=== PATIENT | female | born 1965 | race American Indian/Alaskan Native ===

== ENCOUNTER 2017-05-16 06:54 | Day surgery (SDC) | payer BC, OTHER ==
[~2017-05-16] VITALS: Ht 165.1 cm; Wt 87.7 kg
[~2017-05-16 06:54] MED LIST: AMIT75 PO; ARIP15 PO; CELE200 PO; CLON.1 PO; DIVA500EC PO; DOC250 PO; DOCU100 PO; ESCI20 PO; GABA600 PO; HYDACE5325 PO; Hydrocodone-Ap1 EA23 PO; Imitrex100 MG PO; LAMO100 PO; LORA.5 PO; METF500C PO; METH5 PO; Norco 5-325 Ta1 EACH PO; Percocet 5-3251 EACH PO; SIMV40 PO; TERB250 PO; TIZA4 PO; TOPI25 PO; Zofran8 MG PO
[2017-05-16] MEDS ORDERED: CYAN1000I IM (07:33)
== END 2017-05-16 11:50 | disposition home or self-care (01) ==
LOC: ORSCSDS 06:54
PROVIDERS: Podiatrist Foot & Ankle Surgery
PROC: 01BG0ZZ Excision of Tibial Nerve, Open Approach (ICD-10-PCS; principal; 2017-05-16 08:30)
DX: G57.62 Lesion of plantar nerve, left lower limb (principal); E78.5 Hyperlipidemia, unspecified; F32.9 Major depressive disorder, single episode, unspecified; E16.2 Hypoglycemia, unspecified; J45.909 Unspecified asthma, uncomplicated; Z79.84 Long term (current) use of oral hypoglycemic drugs; Z79.899 Other long term (current) drug therapy; Z87.891 Personal history of nicotine dependence
CPT/HCPCS: 36415; 80048; 82947; 85025; 88304; J0171; J0690; J2250; J2370

== ENCOUNTER → 2018-03-09 | Outpatient (CLI) | payer BC, OTHER ==
[~2018-03-09] MED LIST changes: +CYAN1000I IM
== END | disposition home or self-care (01) ==
LOC: EDSTATUS 13:59 → LAB 20:16 → LAB SHORT 20:16
DX: R30.0 Dysuria (principal)
CPT/HCPCS: 87086

== ENCOUNTER → 2018-03-24 | Outpatient (CLI) | payer BC, OTHER | END | disposition home or self-care (01) | LOC: PLD 10:02 → LAB SHORT 10:02 | DX: D22.5 Melanocytic nevi of trunk (principal) | CPT/HCPCS: 88305 ==

== ENCOUNTER → 2018-03-26 | Outpatient (CLI) | payer BC, OTHER ==
[2018-03-26 16:09] LABS: Hematocrit 40.6 % (33.0-51.0); Hemoglobin 12.9 g/dL (11.5-16.0); Mean Corpuscular HGB 31.2 pg (26.0-34.0); Mean Corpuscular HGB Conc 31.8 g/dL (31.5-36.5); Mean Corpuscular Volume 98 fL (80-100); Mean Platelet Volume 9.3 fL (9.1-12.4); Platelet Count 291 K/mm3 (150-400); RDW Coefficient Variation 12.9 % (11.7-14.2); RDW Standard Deviation 46.1 fL (35.1-46.3); Red Blood Cell Count 4.14 M/mm3 (3.80-5.20); White Blood Cell Count 6.17 K/mm3 (4.00-11.30)
[2018-03-26 16:25] LABS: Alanine Aminotransfer (ALT/SGP 34 U/L (12-78); Albumin, Blood 3.6 g/dL (3.4-5.0); Alk Phos 73 U/L (50-136); Anion Gap 7 mmol/L (6-16); Aspartate Aminotrans (AST/SGOT 19 U/L (12-37); Bilirubin, Total 0.2 mg/dL (0.1-1.0); Blood Urea Nitrogen 15 mg/dL (8-24); Bun/Creatinine Ratio 18.8 (12.0-20.0); CO2, Blood 28 mmol/L (21-32); Calcium, Blood 8.1 mg/dL (8.5-10.1); Chloride, Blood 99 mmol/L (98-108); Globulin, Blood 3.6 g/dL (2.2-4.0); Glomerular Filtration Rate >60 (60-); Glucose, Blood 77 mg/dL (70-99); Potassium, Blood 4.3 mmol/L (3.5-5.5); Sodium, Blood 134 mmol/L (136-145); Total Protein, Blood 7.2 g/dL (6.4-8.2)
[2018-03-26 16:37] LABS: BASOPHILS PERCENT MAN 0 % (0-2); EOSINOPHILS ABSOLUTE MAN 0.24 K/mm3 (0.00-0.68); EOSINOPHILS PERCENT MAN 4 % (0-6); LYMPHOCYTES % ATYPICAL MANUAL 1 % (0-0); LYMPHOCYTES ABSOLUTE MAN 2.46 K/mm3 (0.84-5.20); LYMPHOCYTES PERCENT MAN 39 % (21-46); MONOCYTES ABSOLUTE MAN 0.24 K/mm3 (0.16-1.47); MONOCYTES PERCENT MAN 4 % (4-13); SEG NEUTROPHILS PERCENT MAN 52 % (41-73); TOTAL CELLS COUNTED 100
== END ==
LOC: LAB 15:51 → LAB SHORT 15:51
PROVIDERS: Nurse Practitioner
DX: F41.1 Generalized anxiety disorder (principal); R53.83 Other fatigue
CPT/HCPCS: 80053; 84443; 85007; 85027

== ENCOUNTER 2018-04-27 12:48 | Emergency (ER) | payer BC, OTHER ==
[~2018-04-27] VITALS: Ht 165.1 cm; Wt 81.7 kg
[~2018-04-27 12:48] MED LIST changes: -CYAN1000I IM; -Imitrex100 MG PO; -LAMO100 PO; -TIZA4 PO
[2018-04-27 13:45] LABS: BASOPHILS ABSOLUTE AUTO 0.01 K/mm3 (0.00-0.23); BASOPHILS PERCENT AUTO 0 % (0-2); EOSINOPHILS ABSOLUTE AUTO 0.13 K/mm3 (0.00-0.68); EOSINOPHILS PERCENT AUTO 2 % (0-6); Hematocrit 41.2 % (33.0-51.0); Hemoglobin 12.9 g/dL (11.5-16.0); IMMATURE GRAN ABSOLUTE AUTO 0.03 K/mm3 (0.00-0.10); IMMATURE GRAN PERCENT AUTO 1 % (0-1); LYMPHOCYTES ABSOLUTE AUTO 1.92 K/mm3 (0.84-5.20); LYMPHOCYTES PERCENT AUTO 29 % (21-46); MONOCYTES ABSOLUTE AUTO 0.61 K/mm3 (0.16-1.47); MONOCYTES PERCENT AUTO 9 % (4-13); Mean Corpuscular HGB 30.2 pg (26.0-34.0); Mean Corpuscular HGB Conc 31.3 g/dL (31.5-36.5); Mean Corpuscular Volume 97 fL (80-100); Mean Platelet Volume 9.5 fL (9.1-12.4); NEUTROPHILS ABSOLUTE AUTO 3.96 K/mm3 (1.96-9.15); NEUTROPHILS PERCENT AUTO 59 % (41-73); Platelet Count 279 K/mm3 (150-400); RDW Coefficient Variation 12.3 % (11.7-14.2); RDW Standard Deviation 43.7 fL (35.1-46.3); Red Blood Cell Count 4.27 M/mm3 (3.80-5.20); White Blood Cell Count 6.66 K/mm3 (4.00-11.30)
[2018-04-27 14:09] LABS: Alanine Aminotransfer (ALT/SGP 47 U/L (12-78); Albumin, Blood 3.4 g/dL (3.4-5.0); Alk Phos 108 U/L (50-136); Anion Gap 9 mmol/L (6-16); Aspartate Aminotrans (AST/SGOT 36 U/L (12-37); Bilirubin, Total 0.4 mg/dL (0.1-1.0); Blood Urea Nitrogen 14 mg/dL (8-24); Bun/Creatinine Ratio 14.8 (12.0-20.0); CO2, Blood 27 mmol/L (21-32); Calcium, Blood 8.4 mg/dL (8.5-10.1); Chloride, Blood 101 mmol/L (98-108); Creatinine, Blood 0.95 mg/dL (0.40-1.00); Globulin, Blood 3.4 g/dL (2.2-4.0); Glomerular Filtration Rate >60 (60-); Glucose, Blood 89 mg/dL (70-99); Potassium, Blood 3.9 mmol/L (3.5-5.5); Sodium, Blood 137 mmol/L (136-145); Total Protein, Blood 6.8 g/dL (6.4-8.2)
[2018-04-27 14:22] LABS: Source, Urine Clean Catch
[2018-04-27 14:27] LABS: Bilirubin, Urine Neg (Neg); Blood, Urine Neg (Neg); Glucose Qualitative, Urine Neg (Neg); Ketones, Urine 1+ (Neg); Leukocyte Esterase, Urine Neg (Neg); Nitrite, Urine Pos (Neg); Protein, Urine Neg (Neg); Urobilinogen, Urine 1+ (Normal)
[2018-04-27 14:40] LABS: Appearance, Urine Clear (Clear); Color, Urine Yellow (P-Yellow)
[2018-04-27 14:41] LABS: Red Blood Cells, Urine 0-2 /hpf (0-2); Transitional Epithelial Cells Few /hpf (0-Rare); White Blood Cells, Urine 0-2 /hpf (0-5)
[2018-04-27 14:42] LABS: Bacteria Few /hpf; Squamous Epithelial Cells Few /hpf (Few)
[2018-04-27] MEDS ORDERED: CITRATE OF MAG296 ML PO (17:07)
[2018-04-27] MEDS ORDERED: Colace250 MG PO (17:07)
[2018-04-28] MEDS ORDERED: ARIP20 PO ×2 (20:41)
[2018-04-28] MEDS ORDERED: Zanaflex2 M1 PO ×2 (21:22)
[2018-04-28] MEDS ORDERED: Metformin HCl500 MG PO ×2 (21:23)
[2018-04-28] MEDS ORDERED: LOSA25 PO ×2 (21:25)
[2018-04-28] MEDS ORDERED: HYDMOR4 PO ×2 (21:27)
[2018-04-28] MEDS ORDERED: AMIT25 PO ×2 (21:27)
[2018-04-28] MEDS ORDERED: Imitrex100 MG PO ×2 (21:29)
[2018-04-28] MEDS ORDERED: CYAN1000I IM ×2 (21:29)
[2018-04-28] MEDS ORDERED: LATUDA120 MG PO ×2 (21:31)
[2018-04-28] MEDS ORDERED: DIVA250ER PO ×2 (21:31)
[2018-04-28] MEDS ORDERED: LAMO100 PO ×2 (21:32)
[2018-04-28] MEDS ORDERED: Colace100 MG PO ×2 (21:34)
[2018-04-28] MEDS ORDERED: Ferosul325 MG PO ×2 (21:35)
[2018-04-28] MEDS ORDERED: LIBRAX PO ×2 (21:38)
== END 2018-04-27 17:24 | disposition home or self-care (01) ==
LOC: ER 12:48
PROVIDERS: Emergency Medicine
DX: K59.00 Constipation, unspecified (principal); I25.2 Old myocardial infarction; F31.9 Bipolar disorder, unspecified; E11.9 Type 2 diabetes mellitus without complications; Z87.891 Personal history of nicotine dependence; Z88.8 Allergy status to other drugs, medicaments and biological substances; Z88.5 Allergy status to narcotic agent; Z79.899 Other long term (current) drug therapy; Z91.048 Other nonmedicinal substance allergy status; Z79.84 Long term (current) use of oral hypoglycemic drugs
CPT/HCPCS: 36415; 74176; 80053; 81001; 83690; 85025; 87077; 87086; 87186; 96374; 96375; 99284-25; J2270; J2405

== ENCOUNTER 2018-04-28 16:26 | Inpatient (IN) | payer BC, OTHER ==
[~2018-04-28] VITALS: Ht 165.1 cm; Wt 81.7 kg
[~2018-04-28 16:26] MED LIST changes: +CITRATE OF MAG296 ML PO; +Colace250 MG PO
[2018-04-28 16:54] LABS: BASOPHILS ABSOLUTE AUTO 0.03 K/mm3 (0.00-0.23); BASOPHILS PERCENT AUTO 0 % (0-2); EOSINOPHILS ABSOLUTE AUTO 0.09 K/mm3 (0.00-0.68); EOSINOPHILS PERCENT AUTO 1 % (0-6); Hematocrit 42.5 % (33.0-51.0); Hemoglobin 13.3 g/dL (11.5-16.0); IMMATURE GRAN ABSOLUTE AUTO 0.06 K/mm3 (0.00-0.10); IMMATURE GRAN PERCENT AUTO 1 % (0-1); LYMPHOCYTES ABSOLUTE AUTO 1.12 K/mm3 (0.84-5.20); LYMPHOCYTES PERCENT AUTO 9 % (21-46); MONOCYTES ABSOLUTE AUTO 0.74 K/mm3 (0.16-1.47); MONOCYTES PERCENT AUTO 6 % (4-13); Mean Corpuscular HGB 30.9 pg (26.0-34.0); Mean Corpuscular HGB Conc 31.3 g/dL (31.5-36.5); Mean Corpuscular Volume 99 fL (80-100); Mean Platelet Volume 9.6 fL (9.1-12.4); NEUTROPHILS PERCENT AUTO 84 % (41-73); Platelet Count 307 K/mm3 (150-400); RDW Coefficient Variation 12.1 % (11.7-14.2); RDW Standard Deviation 44.6 fL (35.1-46.3); Red Blood Cell Count 4.31 M/mm3 (3.80-5.20); White Blood Cell Count 12.34 K/mm3 (4.00-11.30)
[2018-04-28 17:10] LABS: Alanine Aminotransfer (ALT/SGP 49 U/L (12-78); Albumin, Blood 3.4 g/dL (3.4-5.0); Alk Phos 112 U/L (50-136); Anion Gap 9 mmol/L (6-16); Aspartate Aminotrans (AST/SGOT 50 U/L (12-37); Bilirubin, Total 0.3 mg/dL (0.1-1.0); Blood Urea Nitrogen 19 mg/dL (8-24); Bun/Creatinine Ratio 19.7 (12.0-20.0); CO2, Blood 27 mmol/L (21-32); Calcium, Blood 8.7 mg/dL (8.5-10.1); Chloride, Blood 97 mmol/L (98-108); Creatinine, Blood 0.96 mg/dL (0.40-1.00); Globulin, Blood 3.4 g/dL (2.2-4.0); Glomerular Filtration Rate >60 (60-); Glucose, Blood 118 mg/dL (70-99); Potassium, Blood 4.7 mmol/L (3.5-5.5); Sodium, Blood 133 mmol/L (136-145); Total Protein, Blood 6.8 g/dL (6.4-8.2)
[2018-04-28 18:59] LABS: Source, Urine Clean Catch
[2018-04-28 19:07] LABS: Appearance, Urine Clear (Clear); Blood, Urine Neg (Neg); Color, Urine Amber (P-Yellow); Glucose Qualitative, Urine Neg (Neg); Ketones, Urine 2+ (Neg); Leukocyte Esterase, Urine 2+ (Neg); Nitrite, Urine Pos (Neg); Protein, Urine 1+ (Neg); Urobilinogen, Urine 2+ (Normal); pH, Urine 6.5 (5.0-8.0)
[2018-04-28 19:16] LABS: Bilirubin, Urine 2+ (Neg)
[2018-04-28 19:17] LABS: Bacteria Mod /hpf; Hyaline Casts 0-2 /lpf (0-2); Red Blood Cells, Urine 0-2 /hpf (0-2); Squamous Epithelial Cells Mod /hpf (Few)
[2018-04-28] MEDS ORDERED: ARIP20 PO ×2 (20:41)
[2018-04-28] MEDS ORDERED: Zanaflex2 M1 PO ×2 (21:22)
[2018-04-28] MEDS ORDERED: Metformin HCl500 MG PO ×2 (21:23)
[2018-04-28] MEDS ORDERED: LOSA25 PO ×2 (21:25)
[2018-04-28] MEDS ORDERED: HYDMOR4 PO ×2 (21:27)
[2018-04-28] MEDS ORDERED: AMIT25 PO ×2 (21:27)
[2018-04-28] MEDS ORDERED: CYAN1000I IM ×2 (21:29)
[2018-04-28] MEDS ORDERED: Imitrex100 MG PO ×2 (21:29)
[2018-04-28] MEDS ORDERED: DIVA250ER PO ×2 (21:31)
[2018-04-28] MEDS ORDERED: LATUDA120 MG PO ×2 (21:31)
[2018-04-28] MEDS ORDERED: LAMO100 PO ×2 (21:32)
[2018-04-28] MEDS ORDERED: Colace100 MG PO ×2 (21:34)
[2018-04-28] MEDS ORDERED: Ferosul325 MG PO ×2 (21:35)
[2018-04-28] MEDS ORDERED: LIBRAX PO ×2 (21:38)
[2018-04-29 05:55] LABS: BASOPHILS ABSOLUTE AUTO 0.01 K/mm3 (0.00-0.23); BASOPHILS PERCENT AUTO 0 % (0-2); EOSINOPHILS ABSOLUTE AUTO 0.16 K/mm3 (0.00-0.68); EOSINOPHILS PERCENT AUTO 3 % (0-6); Hematocrit 35.1 % (33.0-51.0); IMMATURE GRAN ABSOLUTE AUTO 0.02 K/mm3 (0.00-0.10); IMMATURE GRAN PERCENT AUTO 0 % (0-1); LYMPHOCYTES ABSOLUTE AUTO 1.39 K/mm3 (0.84-5.20); LYMPHOCYTES PERCENT AUTO 26 % (21-46); MONOCYTES ABSOLUTE AUTO 0.51 K/mm3 (0.16-1.47); MONOCYTES PERCENT AUTO 9 % (4-13); Mean Corpuscular HGB 30.4 pg (26.0-34.0); Mean Corpuscular HGB Conc 31.3 g/dL (31.5-36.5); Mean Corpuscular Volume 97 fL (80-100); Mean Platelet Volume 9.4 fL (9.1-12.4); NEUTROPHILS ABSOLUTE AUTO 3.36 K/mm3 (1.96-9.15); NEUTROPHILS PERCENT AUTO 62 % (41-73); Platelet Count 249 K/mm3 (150-400); RDW Coefficient Variation 12.3 % (11.7-14.2); RDW Standard Deviation 43.8 fL (35.1-46.3); Red Blood Cell Count 3.62 M/mm3 (3.80-5.20); White Blood Cell Count 5.45 K/mm3 (4.00-11.30)
[2018-04-29 06:24] LABS: Alanine Aminotransfer (ALT/SGP 52 U/L (12-78); Albumin, Blood 2.7 g/dL (3.4-5.0); Alk Phos 98 U/L (50-136); Anion Gap 9 mmol/L (6-16); Aspartate Aminotrans (AST/SGOT 40 U/L (12-37); Bilirubin, Total 0.3 mg/dL (0.1-1.0); Blood Urea Nitrogen 11 mg/dL (8-24); Bun/Creatinine Ratio 18.9 (12.0-20.0); CO2, Blood 26 mmol/L (21-32); Calcium, Blood 7.2 mg/dL (8.5-10.1); Chloride, Blood 106 mmol/L (98-108); Creatinine, Blood 0.58 mg/dL (0.40-1.00); Globulin, Blood 2.7 g/dL (2.2-4.0); Glomerular Filtration Rate >60 (60-); Glucose, Blood 94 mg/dL (70-99); Potassium, Blood 4.2 mmol/L (3.5-5.5); Sodium, Blood 141 mmol/L (136-145); Total Protein, Blood 5.4 g/dL (6.4-8.2)
--- NOTE | 2018-04-29 14:08 | NUR ---
Initial Visit: Palliative Care Consult for Advanced Care Planning. Pt is A&Ox4 and reports 8/10 pain in her abdomen. She reports current regimen is managing her pain. She reports 5/7 anxiety mainly due to the possibility of having an NG-Tube placed. She reports her PCP is currently in the process of deciding how to approach her anxiety and also adjusting her bipolar medications. Educated Pt on distraction techniques to help manage her anxiety. Engaged in therapeutic conversation about goals of care. Pt is of [employer] madelin and lives at home with her . She reports plans to celebrate 30 years of marriage by going to [facility] in 2 weeks. Discussion was made about AD/POLST and Pt expresses interest. Educated Pt on AD/POLST and she reports that she will complete a form after discussion with family. Pt reports no other concerns at this time. Spoke with Pt's nurse Nia and she reports no concerns at this time. Plan: Will place spiritual care consult. Will remain available
--- NOTE | 2018-04-29 14:50 | NUR ---
patient brought to room by radiology to drop off her belongings then taken back to radiology to complete study
--- NOTE | 2018-04-29 17:30 | NUR ---
1700 diarrhea explosive brown liquid diarrhea with some marble sized hard pellets. patient showered self, returned to bed and immediate reoccurence of explosive diarrhea
--- NOTE | 2018-04-29 18:36 | NUR ---
summarpatient taking ice chips and denies nausea. commode at bedside as patient still feels like she may have sudden diarrhea/ patient denies abd pain at this time
[2018-04-30 05:50] LABS: BASOPHILS ABSOLUTE AUTO 0.01 K/mm3 (0.00-0.23); BASOPHILS PERCENT AUTO 0 % (0-2); EOSINOPHILS ABSOLUTE AUTO 0.15 K/mm3 (0.00-0.68); EOSINOPHILS PERCENT AUTO 4 % (0-6); Hematocrit 36.3 % (33.0-51.0); Hemoglobin 10.9 g/dL (11.5-16.0); IMMATURE GRAN ABSOLUTE AUTO 0.01 K/mm3 (0.00-0.10); IMMATURE GRAN PERCENT AUTO 0 % (0-1); LYMPHOCYTES ABSOLUTE AUTO 2.07 K/mm3 (0.84-5.20); LYMPHOCYTES PERCENT AUTO 50 % (21-46); MONOCYTES PERCENT AUTO 10 % (4-13); Mean Corpuscular HGB 29.8 pg (26.0-34.0); Mean Corpuscular Volume 99 fL (80-100); Mean Platelet Volume 9.4 fL (9.1-12.4); NEUTROPHILS ABSOLUTE AUTO 1.51 K/mm3 (1.96-9.15); NEUTROPHILS PERCENT AUTO 37 % (41-73); Platelet Count 237 K/mm3 (150-400); RDW Coefficient Variation 12.2 % (11.7-14.2); RDW Standard Deviation 44.7 fL (35.1-46.3); Red Blood Cell Count 3.66 M/mm3 (3.80-5.20); White Blood Cell Count 4.15 K/mm3 (4.00-11.30)
[2018-04-30 06:23] LABS: Alanine Aminotransfer (ALT/SGP 38 U/L (12-78); Albumin, Blood 2.4 g/dL (3.4-5.0); Alk Phos 91 U/L (50-136); Anion Gap 7 mmol/L (6-16); Aspartate Aminotrans (AST/SGOT 25 U/L (12-37); Bilirubin, Total 0.4 mg/dL (0.1-1.0); Blood Urea Nitrogen 4 mg/dL (8-24); Bun/Creatinine Ratio 6.3 (12.0-20.0); CO2, Blood 28 mmol/L (21-32); Calcium, Blood 7.2 mg/dL (8.5-10.1); Chloride, Blood 108 mmol/L (98-108); Creatinine, Blood 0.63 mg/dL (0.40-1.00); Globulin, Blood 2.5 g/dL (2.2-4.0); Glomerular Filtration Rate >60 (60-); Glucose, Blood 82 mg/dL (70-99); Potassium, Blood 3.8 mmol/L (3.5-5.5); Sodium, Blood 143 mmol/L (136-145); Total Protein, Blood 4.9 g/dL (6.4-8.2)
--- NOTE | 2018-04-30 07:39 | NUR ---
SUMMARY: NO CHANGE OVERNIGHT. PT A/O, INDEPENDENT IN ROOM. VSS. PT ABLE TO SLEEP DENIED NAUSEA, HAD BM, TOLERATING ICE CHIPS. CBG'S STABLE THROUGHOUT NIGHT D5 AT 75ML/HR INFUSING. WILL CTM AND REPORT TO DAY RN.
[2018-04-30 15:20] LABS: Adenovirus F 40/41 Not Detected (NOT DETECT); Astrovirus Not Detected (NOT DETECT); Campylobacter Sp Not Detected (NOT DETECT); Cryptosporidium Not Detected (NOT DETECT); Cyclospora Cayetanensis Not Detected (NOT DETECT); E. Coli O157 Not Detected (NOT DETECT); Entamoeba Histolytica Not Detected (NOT DETECT); Enteroaggregative E. coli-EAEC Not Detected (NOT DETECT); Enteropathogenic E. coli-EPEC Not Detected (NOT DETECT); Enterotoxigenic E. coli-ETEC Not Detected (NOT DETECT); Giardia Lamblia Not Detected (NOT DETECT); Norovirus GI/GII Not Detected (NOT DETECT); Plesiomonas Shigelloides Not Detected (NOT DETECT); Rotavirus A Not Detected (NOT DETECT); Salmonella Sp Not Detected (NOT DETECT); Sapovirus Not Detected (NOT DETECT); Shiga Toxin-prod E. coli-STEC Not Detected (NOT DETECT); Shigella/Enteroin E. coli-EIEC Not Detected (NOT DETECT); Vibrio Cholerae Not Detected (NOT DETECT); Vibrio Sp Not Detected (NOT DETECT); Yersinia Enterocolitica Not Detected (NOT DETECT)
[2018-04-30] MEDS ORDERED: ACET325 PO ×2 (15:50)
[2018-04-30] MEDS ORDERED: CEFP200 PO ×2 (15:50)
[2018-04-30] MEDS ORDERED: METO5A PO ×2 (15:51)
[2018-04-30] MEDS ORDERED: SENN187 PO ×2 (15:52)
[2018-04-30] MEDS ORDERED: MIRALAX17 GM PO ×2 (15:52)
[2018-04-30] MEDS ORDERED: DOC250 PO ×2 (15:52)
--- NOTE | 2018-04-30 16:28 | NUR ---
Noreen was in the process of being discharged. She is active in her madelin community and tells me that her city mail carrier has been providing prayer. She allowed me to pray for continued health.
--- NOTE | 2018-04-30 17:19 | NUR ---
DISCHARGE NOTE PT DISCHARGED HOME. DISCHARGE PAPERWORK COMPLETED BY SHEILA ALVARADO AND DISCHARGE INSTRUCTIONS/TEACHING COMPLETED BY RUSS GILES RN. PT LEFT ROOM WITH STEADY GAIT AT 1700 WITH RN ESCORT. IV REMOVED AND BELONGINGS RETURNED THOUGH PT STATES THAT HER CLOTHES THAT SHE WAS WEARING WHEN SHE CAME IN, DID NOT COME TO HER ROOM WITH HER. SHE STATES THAT SHE WILL CALL [facility] TOMORROW.
== END 2018-04-30 18:33 | disposition home or self-care (01) | DRG 389 ==
LOC: ER 16:26 → SURS 20:13 → ERHOLD 20:13 → SURS 20:13
PROVIDERS: Emergency Medicine; Family Medicine; Student in an Organized Health Care Education/Training Program; ADMIT Hospitalist
DX: K56.609 Unspecified intestinal obstruction, unspecified as to partial versus complete obstruction (principal); E87.1 Hypo-osmolality and hyponatremia; N39.0 Urinary tract infection, site not specified; F31.9 Bipolar disorder, unspecified; E11.9 Type 2 diabetes mellitus without complications; G43.909 Migraine, unspecified, not intractable, without status migrainosus; Z98.84 Bariatric surgery status; G89.4 Chronic pain syndrome; I10 Essential (primary) hypertension; F41.9 Anxiety disorder, unspecified; K59.00 Constipation, unspecified; Z88.6 Allergy status to analgesic agent; Z88.5 Allergy status to narcotic agent; Z88.8 Allergy status to other drugs, medicaments and biological substances; Z79.84 Long term (current) use of oral hypoglycemic drugs; Z79.899 Other long term (current) drug therapy; Z87.891 Personal history of nicotine dependence; I25.2 Old myocardial infarction
CPT/HCPCS: 36415; 74177; 74250; 80053; 81001; 82947; 83690; 85025; 87077; 87086; 87186; 87507; 96361; 96365-59; 96372-59; 96375; 96376; 99285-25; J0696; J1170; J1650; J2405; J2765; J7030; J7070; Q9963; Q9967

== ENCOUNTER 2020-05-29 00:26 | Day surgery (SDC) | payer BC, OTHER ==
[~2020-05-29 00:26] MED LIST changes: +ACET325 PO; +AMIT25 PO; +ARIP20 PO; +CEFP200 PO; +CYAN1000I IM; +Colace100 MG PO; +DIVA250ER PO; +Ferosul325 MG PO; +HYDMOR4 PO; +Imitrex100 MG PO; +LAMO100 PO; +LATUDA120 MG PO; +LIBRAX PO; +LOSA25 PO; +METO5A PO; +MIRALAX17 GM PO; +Metformin HCl500 MG PO; +SENN187 PO; +Zanaflex2 M1 PO
== END 2020-05-29 22:48 | disposition home or self-care (01) ==
LOC: WOUND 00:26
DX: T81.31XA Disruption of external operation (surgical) wound, not elsewhere classified, initial encounter (principal); E11.621 Type 2 diabetes mellitus with foot ulcer; L97.529 Non-pressure chronic ulcer of other part of left foot with unspecified severity; I50.9 Heart failure, unspecified; I25.2 Old myocardial infarction; Z87.891 Personal history of nicotine dependence; Z98.84 Bariatric surgery status; Y83.8 Other surgical procedures as the cause of abnormal reaction of the patient, or of later complication, without mention of misadventure at the time of the procedure
CPT/HCPCS: A9270; G0463

== ENCOUNTER 2020-06-06 01:04 | Day surgery (SDC) | payer BC, OTHER | END 2020-06-06 22:41 | disposition home or self-care (01) | LOC: WOUND 01:04 | DX: S91.302D Unspecified open wound, left foot, subsequent encounter (principal); X58.XXXD Exposure to other specified factors, subsequent encounter; E11.621 Type 2 diabetes mellitus with foot ulcer | CPT/HCPCS: A9270; G0463 ==

== ENCOUNTER 2020-06-13 00:23 | Day surgery (SDC) | payer BC, OTHER | END 2020-06-13 22:37 | disposition home or self-care (01) | LOC: WOUND 00:23 | DX: T81.30XA Disruption of wound, unspecified, initial encounter (principal); E11.9 Type 2 diabetes mellitus without complications; I50.9 Heart failure, unspecified; D64.9 Anemia, unspecified; I95.9 Hypotension, unspecified; I25.2 Old myocardial infarction | CPT/HCPCS: A9270; G0463 ==

== ENCOUNTER 2020-06-29 01:58 | Day surgery (SDC) | payer BC, OTHER | END 2020-06-29 22:57 | disposition home or self-care (01) | LOC: WOUND 01:58 | DX: T81.31XA Disruption of external operation (surgical) wound, not elsewhere classified, initial encounter (principal); S91.302D Unspecified open wound, left foot, subsequent encounter; X58.XXXD Exposure to other specified factors, subsequent encounter; E11.621 Type 2 diabetes mellitus with foot ulcer | CPT/HCPCS: G0463 ==

== ENCOUNTER → 2021-06-05 | Outpatient (CLI) | payer BC, OTHER ==
[~2021-06-05] MED LIST changes: +ABILIFY MYCITE10 M2 PO; +AIMOVIG AU140 MG/1 M SC; +Amitriptyline H10 MG PO; +DIVA250EC PO; +ESTR2 PO; +GABA100 PO; +LACT10SY PO; +LATUDA20 M1; +METF500 PO; +SUBVENITE PO; +SUMA6I SC; +ZEBUTAL 50-3251 EAC1 PO
[2021-06-05 10:12] LABS: Source, Urine Clean Catch
[2021-06-05 11:50] LABS: Bilirubin, Urine Neg (Neg); Blood, Urine 3+ (Neg); Glucose Qualitative, Urine Neg (Neg); Ketones, Urine 1+ (Neg); Leukocyte Esterase, Urine 3+ (Neg); Nitrite, Urine Pos (Neg); Protein, Urine 2+ (Neg); Specific Gravity, Urine 1.015 (1.003-1.022); Urobilinogen, Urine 1+ (Normal)
[2021-06-05 12:03] LABS: Appearance, Urine Hazy (Clear); Bacteria Mod /hpf; Color, Urine Yellow (P-Yellow); Squamous Epithelial Cells Few /hpf (Few); White Blood Cells, Urine TNTC /hpf (0-5)
== END ==
LOC: LAB SHORT 10:07
PROVIDERS: Family Medicine
DX: R30.0 Dysuria (principal)
CPT/HCPCS: 81001

== ENCOUNTER 2021-06-12 11:52 | Day surgery (SDC) | payer BC, OTHER ==
[~2021-06-12] VITALS: Ht 165.1 cm; Wt 87.6 kg
[2021-06-12] MEDS ORDERED: UBRELVY50 MG (12:24)
[2021-06-12] MEDS ORDERED: FERSU300 (12:27)
[2021-06-12] MEDS ORDERED: HYDMOR4 (12:27)
[2021-06-12] MEDS ORDERED: VRAYLAR6 MG (12:27)
[2021-06-12] MEDS ORDERED: LIBRAX CAPSULE1 EACH (12:27)
== END 2021-06-12 14:25 | disposition home or self-care (01) ==
LOC: ORSCSDS 11:52
PROVIDERS: Surgery
PROC: 0DJD8ZZ Inspection of Lower Intestinal Tract, Via Natural or Artificial Opening Endoscopic (ICD-10-PCS; principal; 2021-06-12 13:30)
DX: Z12.11 Encounter for screening for malignant neoplasm of colon (principal); Z80.0 Family history of malignant neoplasm of digestive organs; K59.09 Other constipation; K21.9 Gastro-esophageal reflux disease without esophagitis; E11.9 Type 2 diabetes mellitus without complications; F32.A Depression, unspecified; I10 Essential (primary) hypertension; I25.2 Old myocardial infarction; Z98.84 Bariatric surgery status; Z87.891 Personal history of nicotine dependence; Z79.84 Long term (current) use of oral hypoglycemic drugs; Z79.899 Other long term (current) drug therapy
CPT/HCPCS: 82947; J2704; J7120

== ENCOUNTER → 2021-07-27 | Outpatient (CLI) | payer BC, OTHER ==
[~2021-07-27] MED LIST changes: +FERSU300; +HYDMOR4; +LIBRAX CAPSULE1 EACH; +UBRELVY50 MG; +VRAYLAR6 MG
== END | disposition home or self-care (01) ==
LOC: LAB SHORT 12:02 → LAB 12:02
DX: R30.9 Painful micturition, unspecified (principal)
CPT/HCPCS: 87086

== ENCOUNTER → 2021-12-06 | Outpatient (CLI) | payer BC, OTHER ==
[2021-12-06 14:50] LABS: Source, Urine Clean Catch
[2021-12-06 15:48] LABS: Appearance, Urine Hazy (Clear); Bilirubin, Urine Neg (Neg); Blood, Urine 1+ (Neg); Color, Urine Yellow (P-Yellow); Glucose Qualitative, Urine 3+ (Neg); Ketones, Urine Neg (Neg); Leukocyte Esterase, Urine 3+ (Neg); Nitrite, Urine Neg (Neg); Protein, Urine 1+ (Neg); Urobilinogen, Urine NORM (Normal)
[2021-12-06 16:41] LABS: Bacteria Many /hpf; Red Blood Cells, Urine 0-2 /hpf (0-2); Squamous Epithelial Cells Rare /hpf (Few); White Blood Cells, Urine 50-100 /hpf (0-5)
[2021-12-06 16:42] LABS: Mucus Light (0-Heavy)
== END | disposition home or self-care (01) ==
LOC: LAB SHORT 14:10 → LAB 14:10
PROVIDERS: Family Medicine
DX: R35.0 Frequency of micturition (principal)
CPT/HCPCS: 81001; 87077; 87086; 87186

== ENCOUNTER → 2022-01-31 | Outpatient (CLI) | payer BC, OTHER ==
[2022-01-31 15:26] LABS: Source, Urine Clean Catch
[2022-01-31 18:22] LABS: Appearance, Urine Hazy (Clear); Bilirubin, Urine Neg (Neg); Blood, Urine 3+ (Neg); Color, Urine Yellow (P-Yellow); Glucose Qualitative, Urine 1+ (Neg); Ketones, Urine 1+ (Neg); Leukocyte Esterase, Urine 2+ (Neg); Nitrite, Urine Neg (Neg); Protein, Urine 2+ (Neg); Specific Gravity, Urine 1.025 (1.003-1.022); Urobilinogen, Urine NORM (Normal)
[2022-01-31 18:39] LABS: Bacteria Few /hpf; Hyaline Casts 0-2 /lpf (0-2); Squamous Epithelial Cells Few /hpf (Few); Transitional Epithelial Cells Rare /hpf (0-Rare); White Blood Cells, Urine 25-50 /hpf (0-5); Yeast/Fungi Urine Rare /hpf
== END | disposition home or self-care (01) ==
LOC: LAB 15:10 → LAB SHORT 15:10
PROVIDERS: Family Medicine
DX: R30.0 Dysuria (principal)
CPT/HCPCS: 81001; 87086

== ENCOUNTER 2022-04-18 13:24 | Day surgery (SDC) | payer BC, OTHER ==
[~2022-04-18] VITALS: Ht 165.1 cm; Wt 95.3 kg
[2022-04-18] MEDS ORDERED: VITAMIN B125000 MC1 (13:49)
--- NOTE | 2022-04-18 14:40 | NUR ---
04/18/22 1440 FRANCINE BONE NEBULIZED LIDOCAIN 4% 5ML INHALED PER DR GRAHAM ANESTHESIA PRE EGD
== END 2022-04-18 15:50 | disposition home or self-care (01) ==
LOC: ORSCSDS 13:24
PROVIDERS: Student in an Organized Health Care Education/Training Program
PROC: 0DB58ZX Excision of Esophagus, Via Natural or Artificial Opening Endoscopic, Diagnostic (ICD-10-PCS; principal; 2022-04-18 15:00)
PROC: 0DB68ZX Excision of Stomach, Via Natural or Artificial Opening Endoscopic, Diagnostic (ICD-10-PCS; principal; 2022-04-18 15:00)
DX: R10.12 Left upper quadrant pain (principal); K22.10 Ulcer of esophagus without bleeding; K21.00 Gastro-esophageal reflux disease with esophagitis, without bleeding; R13.10 Dysphagia, unspecified; R23.4 Changes in skin texture; E11.9 Type 2 diabetes mellitus without complications; I25.2 Old myocardial infarction; F31.9 Bipolar disorder, unspecified; I10 Essential (primary) hypertension; F41.9 Anxiety disorder, unspecified; F32.A Depression, unspecified; K58.1 Irritable bowel syndrome with constipation; Z98.84 Bariatric surgery status; E66.9 Obesity, unspecified; Z68.33 Body mass index [BMI] 33.0-33.9, adult; Z87.891 Personal history of nicotine dependence; Z79.84 Long term (current) use of oral hypoglycemic drugs; Z79.899 Other long term (current) drug therapy
CPT/HCPCS: 82947; J0330; J0461; J2001; J2250; J2405; J2704; J3010; J3301; J7120; Q9968

== ENCOUNTER 2022-07-14 14:12 | Emergency (ER) | payer BC, OTHER ==
[~2022-07-14] VITALS: Ht 165.1 cm; Wt 95.2 kg
[~2022-07-14 14:12] MED LIST changes: +VITAMIN B125000 MC1
[2022-07-14 14:49] VITALS: BP 142/92
== END 2022-07-14 16:49 | disposition home or self-care (01) ==
LOC: ER 14:12
DX: S00.551A Superficial foreign body of lip, initial encounter (principal); W45.8XXA Other foreign body or object entering through skin, initial encounter; Z88.8 Allergy status to other drugs, medicaments and biological substances; Z88.6 Allergy status to analgesic agent; Z88.5 Allergy status to narcotic agent; Z79.899 Other long term (current) drug therapy; Z91.048 Other nonmedicinal substance allergy status; Z79.84 Long term (current) use of oral hypoglycemic drugs; I25.10 Atherosclerotic heart disease of native coronary artery without angina pectoris; I25.2 Old myocardial infarction; E11.9 Type 2 diabetes mellitus without complications; I10 Essential (primary) hypertension; Z87.891 Personal history of nicotine dependence
CPT/HCPCS: 99283; A9270

== ENCOUNTER → 2023-01-15 | Outpatient (CLI) | payer BC, OTHER | END | disposition home or self-care (01) | LOC: LAB SHORT 11:30 → LAB 11:30 | DX: R30.0 Dysuria (principal) | CPT/HCPCS: 87077; 87086; 87186 ==

== ENCOUNTER → 2023-06-26 | Outpatient (CLI) | payer BC, OTHER ==
[2023-06-26 20:07] LABS: Bacterial Vaginosis PCR Negative (NEGATIVE); Candida Group, PCR NOT DETECTED (NOT DETECT); Candida glabrata-krusei, PCR NOT DETECTED (NOT DETECT)
== END ==
LOC: LAB SHORT 16:30 → LAB 16:30
PROVIDERS: Nurse Practitioner Family
DX: R30.0 Dysuria (principal)
CPT/HCPCS: 87077; 87086; 87186; 87481; 87661; 87801

== ENCOUNTER → 2023-08-08 | Outpatient (CLI) | payer BC, OTHER ==
[2023-08-08 19:17] LABS: BASOPHILS ABSOLUTE AUTO 0.02 K/mm3 (0.00-0.23); BASOPHILS PERCENT AUTO 0 % (0-2); EOSINOPHILS ABSOLUTE AUTO 0.08 K/mm3 (0.00-0.68); EOSINOPHILS PERCENT AUTO 1 % (0-6); Hematocrit 44.4 % (33.0-51.0); Hemoglobin 14.1 g/dL (11.5-16.0); IMMATURE GRAN ABSOLUTE AUTO 0.01 K/mm3 (0.00-0.10); IMMATURE GRAN PERCENT AUTO 0 % (0-1); LYMPHOCYTES ABSOLUTE AUTO 2.18 K/mm3 (0.84-5.20); LYMPHOCYTES PERCENT AUTO 32 % (21-46); MONOCYTES ABSOLUTE AUTO 0.45 K/mm3 (0.16-1.47); MONOCYTES PERCENT AUTO 7 % (4-13); Mean Corpuscular HGB 29.1 pg (26.0-34.0); Mean Corpuscular HGB Conc 31.8 g/dL (31.5-36.5); Mean Corpuscular Volume 92 fL (80-100); Mean Platelet Volume 9.6 fL (9.1-12.4); NEUTROPHILS ABSOLUTE AUTO 3.98 K/mm3 (1.96-9.15); NEUTROPHILS PERCENT AUTO 59 % (41-73); Platelet Count 321 K/mm3 (150-400); RDW Coefficient Variation 12.2 % (11.7-14.2); RDW Standard Deviation 41.4 fL (35.1-46.3); Red Blood Cell Count 4.85 M/mm3 (3.80-5.20); White Blood Cell Count 6.72 K/mm3 (4.00-11.30)
[2023-08-08 19:32] LABS: Albumin, Blood 3.9 g/dL (3.4-5.0); Albumin/Globulin Ratio 1.1 (0.8-1.8); Bilirubin, Total 0.4 mg/dL (0.1-1.0); Bun/Creatinine Ratio 15.3 (12.0-20.0); Creatinine, Blood 0.78 mg/dL (0.40-1.00); Globulin, Blood 3.6 g/dL (2.2-4.0); Potassium, Blood 3.9 mmol/L (3.5-5.5); Thyroid Stimulating Hormone 1.63 uIU/mL (0.360-4.800); Total Protein, Blood 7.5 g/dL (6.4-8.2)
== END ==
LOC: LAB 17:16 → LAB SHORT 17:16
PROVIDERS: Student in an Organized Health Care Education/Training Program
DX: R51.9 Headache, unspecified (principal)
CPT/HCPCS: 80053; 84443; 85025

== ENCOUNTER → 2023-08-21 | Outpatient (CLI) | payer BC, OTHER | END | disposition home or self-care (01) | LOC: LAB 17:03 → LAB SHORT 17:03 | DX: N39.0 Urinary tract infection, site not specified (principal) | CPT/HCPCS: 87077; 87086; 87186 ==

== ENCOUNTER → 2023-10-30 | Outpatient (CLI) | payer BC, OTHER ==
[2023-10-30 17:10] LABS: Source, Urine Clean Catch
[2023-10-30 18:12] LABS: Appearance, Urine Clear (Clear); Bilirubin, Urine Neg (Neg); Blood, Urine Neg (Neg); Color, Urine Yellow (P-Yellow); Glucose Qualitative, Urine 3+ (Neg); Ketones, Urine Neg (Neg); Leukocyte Esterase, Urine 1+ (Neg); Nitrite, Urine Neg (Neg); Protein, Urine Neg (Neg); Urobilinogen, Urine NORM (Normal)
[2023-10-30 18:22] LABS: Bacteria Rare /hpf; Red Blood Cells, Urine 0-2 /hpf (0-2); Squamous Epithelial Cells Few /hpf (Few)
== END ==
LOC: LAB 17:06 → LAB SHORT 17:06
PROVIDERS: Family Medicine
DX: R30.0 Dysuria (principal)
CPT/HCPCS: 81001; 87086

== ENCOUNTER → 2024-05-26 | Outpatient (CLI) | payer BC | LOC: LAB SHORT 10:01 → LAB 10:01 | DX: R30.0 Dysuria (principal); N30.00 Acute cystitis without hematuria | CPT/HCPCS: 87077; 87086; 87186 ==

== ENCOUNTER → 2024-05-31 | Outpatient (CLI) | payer BC | LOC: LAB 16:21 → LAB SHORT 16:21 | DX: R30.0 Dysuria (principal) | CPT/HCPCS: 87086 ==

== ENCOUNTER → 2025-01-13 | Outpatient (CLI) | payer BC, OTHER | LOC: LAB 17:11 → LAB SHORT 17:11 | DX: N39.0 Urinary tract infection, site not specified (principal) | CPT/HCPCS: 87077; 87086; 87186 ==

== ENCOUNTER → 2025-01-31 | Outpatient (CLI) | payer BC, OTHER | LOC: LAB 10:30 → LAB SHORT 10:30 | DX: R30.0 Dysuria (principal) | CPT/HCPCS: 87077; 87086; 87186 ==